=== PATIENT | male | born 1950 | race Caucasian/White ===

== ENCOUNTER → 2023-06-25 12:49 | Outpatient (REF) | payer OTHER, SELFPAY | LOC: PAVMRI 12:49 | PROVIDERS: ATTENDING PHYSICIAN Physician Assistant Surgical; FAMILY PHYSICIAN Internal Medicine | DX: M25.561 Pain in right knee (principal) | CPT/HCPCS: 73721 ==

== ENCOUNTER → 2024-06-09 07:51 | Outpatient (REF) | payer OTHER, SELFPAY | LOC: RAD 07:51 | PROVIDERS: ATTENDING PHYSICIAN Internal Medicine | DX: J20.9 Acute bronchitis, unspecified (principal) | CPT/HCPCS: 71046 ==

== ENCOUNTER → 2024-06-19 10:03 | Outpatient (REF) | payer OTHER, SELFPAY | LOC: REG 10:03 | PROVIDERS: ATTENDING PHYSICIAN Internal Medicine | DX: J18.9 Pneumonia, unspecified organism (principal) | CPT/HCPCS: 71046 ==

== ENCOUNTER → 2024-08-24 10:29 | Outpatient (REF) | payer OTHER, SELFPAY | LOC: REG 10:29 | PROVIDERS: ATTENDING PHYSICIAN Physician Assistant Surgical; FAMILY PHYSICIAN Internal Medicine | DX: J18.9 Pneumonia, unspecified organism (principal); M25.561 Pain in right knee | CPT/HCPCS: 71046; 73564 ==

== ENCOUNTER → 2024-09-01 09:00 | Outpatient (REF) | payer OTHER, SELFPAY | LOC: HWRAD 09:00 | PROVIDERS: ATTENDING PHYSICIAN Internal Medicine | DX: R05.1 Acute cough (principal); R93.89 Abnormal findings on diagnostic imaging of other specified body structures | CPT/HCPCS: 71250 ==

== ENCOUNTER 2024-09-23 17:26 | Emergency (ER) | payer OTHER, SELFPAY ==
[2024-09-23 17:27] VITALS: BP 131/77
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
[2024-09-23] MEDS: KEFLEX 500 MG PO (19:14)
[2024-09-23] MEDS: ADACEL 0.5 ML IM (19:14)
== END 2024-09-23 19:56 | disposition home or self-care (01) ==
LOC: EMR 17:26
PROVIDERS: EMERGENCY PHYSICIAN Emergency Medicine; FAMILY PHYSICIAN Internal Medicine
DX: S61.314A Laceration without foreign body of right ring finger with damage to nail, initial encounter (principal); S61.111A Laceration without foreign body of right thumb with damage to nail, initial encounter; S61.212A Laceration without foreign body of right middle finger without damage to nail, initial encounter; S61.316A Laceration without foreign body of right little finger with damage to nail, initial encounter; W31.2XXA Contact with powered woodworking and forming machines, initial encounter; Z23 Encounter for immunization; N40.0 Benign prostatic hyperplasia without lower urinary tract symptoms; I10 Essential (primary) hypertension
CPT/HCPCS: 99283; 12001; 90471; 73130; 90715

== ENCOUNTER 2024-12-06 18:08 | Emergency (ER) | payer OTHER, SELFPAY ==
[2024-12-06 18:10] VITALS: BP 155/84
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
== END 2024-12-06 19:37 | disposition home or self-care (01) ==
LOC: EMR 18:08
PROVIDERS: EMERGENCY PHYSICIAN Emergency Medicine; FAMILY PHYSICIAN Internal Medicine
DX: S63.287A Dislocation of proximal interphalangeal joint of left little finger, initial encounter (principal); V18.4XXA Pedal cycle driver injured in noncollision transport accident in traffic accident, initial encounter; Y93.55 Activity, bike riding; N40.0 Benign prostatic hyperplasia without lower urinary tract symptoms
CPT/HCPCS: 99283; 26770; 73140

== ENCOUNTER → 2024-12-07 07:43 | Outpatient (REF) | payer OTHER, SELFPAY | LOC: HWRAD 07:43 | PROVIDERS: ATTENDING PHYSICIAN Internal Medicine Critical Care Medicine; FAMILY PHYSICIAN Internal Medicine | DX: J21.9 Acute bronchiolitis, unspecified (principal); R93.89 Abnormal findings on diagnostic imaging of other specified body structures | CPT/HCPCS: 71250 ==

== ENCOUNTER → 2024-12-09 11:02 | Outpatient (REF) | payer OTHER, SELFPAY | LOC: RAD 11:02 | PROVIDERS: ATTENDING PHYSICIAN Internal Medicine | DX: M25.532 Pain in left wrist (principal); M25.561 Pain in right knee | CPT/HCPCS: 73110; 73130; 73564 ==